=== PATIENT | female | born 1995 | race Two or more races ===

== ENCOUNTER 2022-04-27 16:35 | Outpatient (CLI) | payer MEDICAID, SELFPAY ==
[2022-04-27 23:28] LABS: Chlamydia DNA Amplified* NOT DETECTED (No Detected); GC DNA Amplified* NOT DETECTED (No Detected)
[2022-04-29 14:22] LABS: DHEAS 216 ug/dL (99-340); Follicle Stimulating Hormone 5.3 IU/L; Luteinizing Hormone 10.6 IU/L
[2022-05-01 17:01] LABS: Estradiol by TMS 56.1 pg/mL
[2022-05-01 17:04] LABS: 17-Hydroxyprogesterone HPLC 80.85 ng/dL (<=206.00)
[2022-05-02 14:15] LABS: Sex Hormone Binding Globulin 57 nmol/L (25-122); Testosterone, Free LC-MS/MS 3.8 pg/mL (0.8-7.4); Testosterone, LC-MS/MS 32 ng/dL (9-55)
== END 2022-04-27 16:36 | disposition home or self-care (01) ==
PROVIDERS: Visit Provider Physician Assistant Medical
DX: Z00.00 Encounter for general adult medical examination without abnormal findings (principal); N76.0 Acute vaginitis; N92.6 Irregular menstruation, unspecified
CPT/HCPCS: 82627; 82670; 83001; 83002; 83498; 84270; 84402; 84403; 84443; 87109; 87491; 87591

== ENCOUNTER 2022-06-20 14:32 | Outpatient (CLI) | payer OTHER, SELFPAY ==
--- NOTE | 2022-06-20 15:00 | CRLHL7_ITS ---
For Patients: As a result of the Century Cures Act, medical imaging exams and procedure reports are released immediately into your electronic medical record. You may view this report before your referring provider. If you have questions, please contact your health care provider. CLINICAL HISTORY: Possible PCOS TECHNIQUE: 2D bravo scale and color Doppler images were acquired of the pelvis using a transvaginal approach. FINDINGS: On transvaginal imaging, the myometrium has a normal uniform echotexture. The uterus measures 6.6 x 3.2 x 4.8 cm. The endometrial lining appears normal and measures 5 mm in thickness. Incidental cervical nabothian cysts are present. The left ovary measures 3.8 x 1.9 x 2.7 cm in size and the right ovary measures 3.8 x 2.5 x 2.8 cm. Normal appearing ovarian follicles noted. The ovaries demonstrate normal arterial and venous blood flow on color Doppler analysis. There are no suspicious fluid collections within the cul-de-sac. IMPRESSION: No abnormalities of the uterus or ovaries identified. No evidence of PCOS. Dictated by Justin Vick MD @ 06/22/2022 6:48:00 AM (Electronically Signed)
== END 2022-06-20 14:33 | disposition home or self-care (01) ==
LOC: US 14:33
PROVIDERS: PCP Physician Assistant Medical; Visit Provider Physician Assistant Medical
DX: Z34.90 Encounter for supervision of normal pregnancy, unspecified, unspecified trimester (principal)
CPT/HCPCS: 76830

== ENCOUNTER 2022-09-07 22:20 | Emergency (ER) | payer OTHER, SELFPAY ==
[2022-09-07 22:27] VITALS: BP 114/75; PULSE 67; RESP 18; TEMP 36.6; O2SAT 97; BMI 39.7
--- NOTE | 2022-09-07 22:39 | ED.GENADULT ---
HPI - General Adult General Chief complaint: Abdominal Pain <Andressa Carty MD - Last Filed: 09/07/22 23:56> Stated complaint: Abdominal Pain <Andressa Carty MD - Last Filed: 09/07/22 23:56> Time Seen by Provider: 09/07/22 22:25 <Andressa Carty MD - Last Filed: 09/07/22 23:56> Source: patient <Andressa Carty MD - Last Filed: 09/07/22 23:56> Mode of arrival: ambulatory <Andressa Carty MD - Last Filed: 09/07/22 23:56> Limitations: no limitations <Andressa Carty MD - Last Filed: 09/07/22 23:56> History of Present Illness HPI narrative: 26-year-old female coming in today complaining of right upper quadrant abdominal pain that is been going on for 6 days. Pain is located in the right upper quadrant and does not radiate. Nothing makes it better or worse. It is not associated with eating. Does not cause nausea or vomiting. She rates the pain at 8.5/10. She was seen in the urgent care this afternoon where her lab workup was unremarkable and an outpatient ultrasound was recommended. She comes to the ER for evaluation given the fact that she has had no relief her pain all day. She denies any fevers or chills. She states that she has regular bowel movements but they are often small. She is due for her menses any day, test earlier today was negative. She is sexually active, is not on control. She denies any urinary symptoms such as increased urgency, frequency or dysuria. She denies cough, shortness of breath or pain with deep inspiration. Past medical history significant for morbid obesity, vitiligo, hidradenitis suppurative, a. She takes spironolactone for acne. She denies any previous surgeries. <Andressa Carty MD - Last Filed: 09/07/22 23:56> Related Data Home medications: Previous Rx's Medication Instructions Recorded clindamycin phosphate 1 % lotion 1 applic topical BID #60 mL 06/08/22 ruxolitinib 1.5 % topical cream 1 applic topical BID #60 grams 06/08/22 (Opzelura) spironolactone 50 mg tablet 50 mg PO BID #60 tabs 06/08/22 <Andressa Carty MD - Last Filed: 09/07/22 23:56> Allergies/adverse reactions: Allergies Allergy/AdvReac Type Severity Reaction Status Date / Time No Known Drug Allergies Allergy Verified 06/08/22 14:57 <Andressa Carty MD - Last Filed: 09/07/22 23:56> Review of Systems Status of ROS: Reports: 10 or more systems reviewed and unremarkable except as noted in History and below <Andressa Carty MD - Last Filed: 09/07/22 23:56> [facility] Medical History: Medical History Vitiligo ?L80 - Vitiligo (ICD-10) History of morbid obesity ?Z86.39 - Personal history of other endocrine, nutritional and metabolic disease (ICD-10) <Andressa Carty MD - Last Filed: 09/07/22 23:56> Surgical History: Surgical History History of wisdom tooth extraction ?K08.409 - Partial loss of teeth, unspecified cause, unspecified class (ICD-10) <Andressa Carty MD - Last Filed: 09/07/22 23:56> Family History: Family History Father Diabetes <Andressa Carty MD - Last Filed: 09/07/22 23:56> Social History: Social History Narrative: Single- in a significant relationship Exercises 4-5 days per week Consumes about 5 alcoholic beverages per week. Denies any recreational drug use. Nonsmoker. Has a high school diploma. Smoking Status: Never smoker Non-prescribed substance use: denies use <Andressa Carty MD - Last Filed: 09/07/22 23:56> Exam Narrative: Exam Narrative: Obese, well-developed patient in no acute distress. Alert and oriented. Answers questions appropriately. Mood and affect are appropriate. Thoughts are goal oriented and rational. No tangential or magical thinking noted. Patient speaks in full sentences without needing to catch her breath. She does not appear ill or toxic. HEENT: Normocephalic atraumatic. Pupils are equally round reactive to light. Extraocular muscles are intact. Conjunctivae are moist without any icterus noted. Moist mucous membranes. Posterior pharynx is normal. Neck is soft without any lymphadenopathy or thyromegaly. No masses are appreciated. Cardiovascular: Heart is regular rate and rhythm S1 and S2 are present without any murmurs. Lungs: Clear to auscultation bilaterally no wheezes rhonchi or rales are appreciated. Patient takes deep breaths without any discomfort. Abdomen: Soft and nondistended with normal bowel sounds. No guarding or rebound. Difficult to assess for organomegaly secondary to body habitus. Patient does have a positive Lewis sign and tenderness in the right upper quadrant. Extremities: Bilateral lower extremities are without edema. <Andressa Carty MD - Last Filed: 09/07/22 23:56> Const: Vital Signs, click to edit/add: Vital Signs - 24 hr 09/07/22 22:27 09/07/22 23:33 Temperature 97.8 F 97.6 F Pulse Rate [Right Pulse Oximeter] 67 70 Respiratory Rate 18 16 Blood Pressure [Ri ght Upper Arm] 114/75 110/70 Pulse Oximetry 97 96 Oxygen Delivery Me thod Room Air Room Air <Andressa Carty MD - Last Filed: 09/07/22 23:56> Vital Signs, click to edit/add: Vital Signs - 24 hr 09/07/22 22:27 09/07/22 23:33 Temperature 97.8 F 97.6 F Pulse Rate [Right Pulse Oximeter] 67 70 Respiratory Rate 18 16 Blood Pressure [Ri ght Upper Arm] 114/75 110/70 Pulse Oximetry 97 96 Oxygen Delivery Me thod Room Air Room Air <Randi Carmen MD - Last Filed: 09/08/22 01:00> Course Course Hospital Course: IV established and labs were drawn, right upper quadrant ultrasound ordered. Differential diagnosis at this time include gastritis, cholecystitis, cholelithiasis, colitis, abdominal wall pain. Labs are unremarkable: There is no elevated white count, normal CRP, normal LFTs, normal UA. Ultrasound, per certified cytotechnologist, shows cholelithiasis and no obvious evidence of cholecystitis. <Andressa Carty MD - Last Filed: 09/07/22 23:56> Vital Signs Vital signs: Initial Vital Signs Temperature 97.8 F 09/07/22 22:27 Temperature Source Temporal Artery Scan 09/07/22 22:27 Pulse Rate 67 09/07/22 22:27 Pulse Rhythm Regular 09/07/22 22:27 Respiratory Rate 18 09/07/22 22:27 Blood Pressure 114/75 09/07/22 22:27 Blood Pressure Mean 88 09/07/22 22:27 Blood Pressure Position Sitting 09/07/22 22:27 Pulse Oximetry 97 09/07/22 22:27 Oxygen Delivery Method Room Air 09/07/22 22:27 Vital Signs Temperature 97.8 F 09/07/22 22:27 Pulse Rate 67 09/07/22 22:27 Respiratory Rate 18 09/07/22 22:27 Blood Pressure 114/75 09/07/22 22:27 Pulse Oximetry 97 09/07/22 22:27 Oxygen Delivery Method Room Air 09/07/22 22:27 Temperature 97.6 F 09/07/22 23:33 Pulse Rate 70 09/07/22 23:33 Respiratory Rate 16 09/07/22 23:33 Blood Pressure 110/70 09/07/22 23:33 Pulse Oximetry 96 09/07/22 23:33 Oxygen Delivery Method Room Air 09/07/22 23:33 <Andressa Carty MD - Last Filed: 09/07/22 23:56> Initial Vital Signs Temperature 97.8 F 09/07/22 22:27 Temperature Source Temporal Artery Scan 09/07/22 22:27 Pulse Rate 67 09/07/22 22:27 Pulse Rhythm Regular 09/07/22 22:27 Respiratory Rate 18 09/07/22 22:27 Blood Pressure 114/75 09/07/22 22:27 Blood Pressure Mean 88 09/07/22 22:27 Blood Pressure Position Sitting 09/07/22 22:27 Pulse Oximetry 97 09/07/22 22:27 Oxygen Delivery Method Room Air 09/07/22 22:27 Vital Signs Temperature 97.8 F 09/07/22 22:27 Pulse Rate 67 09/07/22 22:27 Respiratory Rate 18 09/07/22 22:27 Blood Pressure 114/75 09/07/22 22:27 Pulse Oximetry 97 09/07/22 22:27 Oxygen Delivery Method Room Air 09/07/22 22:27 Temperature 97.6 F 09/07/22 23:33 Pulse Rate 70 09/07/22 23:33 Respiratory Rate 16 09/07/22 23:33 Blood Pressure 110/70 09/07/22 23:33 Pulse Oximetry 96 09/07/22 23:33 Oxygen Delivery Method Room Air 09/07/22 23:33 <Randi Carmen MD - Last Filed: 09/08/22 01:00> Medical Decision Making MDM Narrative Medical decision making narrative: 26-year-old female with cholelithiasis. Patient will be discharged home at this time with pain medication. We will give her the information to call the surgery clinic in the morning to set up an outpatient appointment for management. Recommend returning to the ER if she develops fever, vomiting or pain that cannot be controlled. <Andressa Craty MD - Last Filed: 09/07/22 23:56> 26-year-old female with cholelithiasis. Patient will be discharged home at this time with pain medication. We will give her the information to call the surgery clinic in the morning to set up an outpatient appointment for management. Recommend returning to the ER if she develops fever, vomiting or pain that cannot be controlled. Update: I assumed care from Dr. Carty while waiting for ultrasound report. As expected, gallstones shown. Patient has previously been counseled by Dr. Carty regarding plan of care. Discharge instructions reviewed and augmented slightly. Patient will call for elective outpatient appointment, consider elective cholecystectomy, counseled on low-fat diet and interim. Alarm symptoms reviewed by nursing team and included in discharge instructions. <Randi Carmne MD - Last Filed: 09/08/22 01:00> Lab Data Lab results reviewed: Yes I reviewed the patient's lab results <Andressa Carty MD - Last Filed: 09/07/22 23:56> Lab results narrative: Reassuring <Randi Carmen MD - Last Filed: 09/08/22 01:00> Labs: Lab Results 09/07/22 09/07/22 Range/Units 22:45 22:55 WBC 8.32 (4.50-11.00) K/uL RBC 5.37 H (4.00-5.20) m/uL Hgb 15.4 (12.0-16.0) gm/dL Hct 45.3 (33.0-51.0) % MCV 84 (80-100) fL MCH 29 (26-34) pg MCHC 34 (32-36) gm/dL RDW Coeff of Yenny 13.1 (11.5-15.5) % Plt Count 276 (140-440) K/uL Neut % (Auto) 65.6 (42.0-72.0) % Lymph % (Auto) 26.9 (20-44) % [place] % (Auto) 5.6 (0.0-11.0) % Eos % (Auto) 1.3 (0.0-7.0) % Baso % (Auto) 0.4 (0.0-3.0) % Neut # (Auto) 5.45 (1.7-7.0) K/uL Lymph # (Auto) 2.24 (0.90-2.90) K/uL [place] # (Auto) 0.50 (0.00-0.90) K/UL Eos # (Auto) 0.11 (0.00-0.50) K/uL Baso # (Auto) 0.03 (0.00-0.30) K/uL Sodium 137 (135-149) mmol/L Potassium 3.8 (3.6-5.1) mmol/L Chloride 100 (96-114) mmol/L Carbon Dioxide 26 (20-32) mmol/L BUN 10 (5-24) mg/dL Creatinine 0.5 (0.5-1.5) mg/dL Estimated Creat Clear 159.62 Estimated GFR 133 ml/min Glucose 92 (60-115) mg/dL Calcium 10.0 (8.4-10.6) mg/dL Total Bilirubin 0.9 (0.1-1.5) mg/dL Direct Bilirubin 0.1 (0.0-0.5) mg/dL AST 28 (12-35) U/L ALT 22 (4-35) U/L Alkaline Phosphatase 67 (40-150) U/L C-Reactive Protein 0.9 (0.5-1.0) mg/dL Total Protein 8.8 H (6.0-8.3) g/dL Albumin 5.0 (3.3-5.0) g/dL Lipase 55 (23-300) U/L Urine Color Yellow (Yellow) Urine Appearance Clear (Clear) Urine pH 6.5 (5.0-8.5) Ur Specific [place] <= 1.005 (1.000-1.030) Urine Protein Negative (Negative) Urine Glucose (UA) Negative (Negative) Urine Ketones Negative (Negative) Urine Blood Negative (Negative) Urine Nitrite Negative (Negative) Urine Bilirubin Negative (Negative) Urine Urobilinogen 0.2 (0.2-1.0) Ur Leukocyte Esterase Negative (Negative) Urine RBC 0-2 (0-2) Urine WBC 0-2 (0-5) Ur Squamous Epith Cells None (None-Few) Urine Bacteria None (None) <Andressa Carty MD - Last Filed: 09/07/22 23:56> Lab Results 09/07/22 09/07/22 Range/Units 22:45 22:55 WBC 8.32 (4.50-11.00) K/uL RBC 5.37 H (4.00-5.20) m/uL Hgb 15.4 (12.0-16.0) gm/dL Hct 45.3 (33.0-51.0) % MCV 84 (80-100) fL MCH 29 (26-34) pg MCHC 34 (32-36) gm/dL RDW Coeff of Yenny 13.1 (11.5-15.5) % Plt Count 276 (140-440) K/uL Neut % (Auto) 65.6 (42.0-72.0) % Lymph % (Auto) 26.9 (20-44) % [place] % (Auto) 5.6 (0.0-11.0) % Eos % (Auto) 1.3 (0.0-7.0) % Baso % (Auto) 0.4 (0.0-3.0) % Neut # (Auto) 5.45 (1.7-7.0) K/uL Lymph # (Auto) 2.24 (0.90-2.90) K/uL [place] # (Auto) 0.50 (0.00-0.90) K/UL Eos # (Auto) 0.11 (0.00-0.50) K/uL Baso # (Auto) 0.03 (0.00-0.30) K/uL Sodium 137 (135-149) mmol/L Potassium 3.8 (3.6-5.1) mmol/L Chloride 100 (96-114) mmol/L Carbon Dioxide 26 (20-32) mmol/L BUN 10 (5-24) mg/dL Creatinine 0.5 (0.5-1.5) mg/dL Estimated Creat Clear 159.62 Estimated GFR 133 ml/min Glucose 92 (60-115) mg/dL Calcium 10.0 (8.4-10.6) mg/dL Total Bilirubin 0.9 (0.1-1.5) mg/dL Direct Bilirubin 0.1 (0.0-0.5) mg/dL AST 28 (12-35) U/L ALT 22 (4-35) U/L Alkaline Phosphatase 67 (40-150) U/L C-Reactive Protein 0.9 (0.5-1.0) mg/dL Total Protein 8.8 H (6.0-8.3) g/dL Albumin 5.0 (3.3-5.0) g/dL Lipase 55 (23-300) U/L Urine Color Yellow (Yellow) Urine Appearance Clear (Clear) Urine pH 6.5 (5.0-8.5) Ur Specific [place] <= 1.005 (1.000-1.030) Urine Protein Negative (Negative) Urine Glucose (UA) Negative (Negative) Urine Ketones Negative (Negative) Urine Blood Negative (Negative) Urine Nitrite Negative (Negative) Urine Bilirubin Negative (Negative) Urine Urobilinogen 0.2 (0.2-1.0) Ur Leukocyte Esterase Negative (Negative) Urine RBC 0-2 (0-2) Urine WBC 0-2 (0-5) Ur Squamous Epith Cells None (None-Few) Urine Bacteria None (None) <Randi Carmen MD - Last Filed: 09/08/22 01:00> Imaging Data US - abdomen: Attestation: I have reviewed the pertinent imaging results. <Randi Carmen MD - Last Filed: 09/08/22 01:00> My impression: Gallstones, no cholecystitis <Randi Carmen MD - Last Filed: 09/08/22 01:00> Radiologist's impression: IMPRESSION: Cholelithiasis and biliary sludge without evidence for cholecystitis. Otherwise, unremarkable right upper quadrant ultrasound. <Randi Carmen MD - Last Filed: 09/08/22 01:00> Discharge Plan Discharge Clinical Impression: Cholelithiasis <Andressa Carty MD - Last Filed: 09/07/22 23:56> Patient Disposition: Home, Self-Care <Andressa Carty MD - Last Filed: 09/07/22 23:56> Condition: Stable <Andressa Carty MD - Last Filed: 09/07/22 23:56> Instructions: Gallstones (ED) <Andressa Carty MD - Last Filed: 09/07/22 23:56> Additional Instructions: You have stones inside your gallbladder. You will be provided with the phone number to the surgery clinic today-you should call them 1st thing in the morning to set up a follow-up appointment. In the meantime I recommend you eat a very bland diet - try to stick to lots of fruits and vegetables, avoid anything fried or that has a lot of fat in it- this will aggravate the gallbladder and causing increased pain. Prescription sent to [facility]. <Andressa Carty MD - Last Filed: 09/07/22 23:56> Activity Level: Activity as Tolerated <Andressa Carty MD - Last Filed: 09/07/22 23:56> Activity as Tolerated <Randi Carmen MD - Last Filed: 09/08/22 01:00> Discharge Diet: Low Fat/Low Cholesterol <Andressa Carty MD - Last Filed: 09/07/22 23:56> Low Fat/Low Cholesterol <Randi Carmen MD - Last Filed: 09/08/22 01:00> Prescriptions: No Action spironolactone 50 mg tablet 50 mg PO BID Qty: 60 2RF clindamycin phosphate 1 % lotion 1 applic topical BID Qty: 60 0RF Opzelura 1.5 % cream 1 applic topical BID Qty: 60 3RF <Andressa Carty MD - Last Filed: 09/07/22 23:56> Follow Up/Referrals: Chely Lane PA-C [Primary Care Provider] - <Andressa Catry MD - Last Filed: 09/07/22 23:56> Stand Alone Forms: My[facility] Info Instructions <Andressa Carty MD - Last Filed: 09/07/22 23:56>
--- NOTE | 2022-09-07 22:41 | CRLHL7_ITS ---
For Patients: As a result of the Century Cures Act, medical imaging exams and procedure reports are released immediately into your electronic medical record. You may view this report before your referring provider. If you have questions, please contact your health care provider. INDICATION: Right upper quadrant abdomen pain. TECHNIQUE: Ultrasound abdomen limited. Sonographic images of the right upper quadrant were obtained using bravo-scale and color Doppler images. COMPARISON: None. FINDINGS: Liver: Normal in size and echotexture. No suspicious masses. No intrahepatic biliary dilatation. Gallbladder: Contains several calcified stones and biliary sludge. Normal wall thickness. No pericholecystic fluid. Negative sonographic Lewis sign per blunger. Common bile duct: 3 mm. Pancreas: Unremarkable. Right kidney: Normal in size. Normal echotexture and cortex. No suspicious masses, stones, or hydronephrosis. Vasculature: Proximal abdominal aorta and IVC are unremarkable. IMPRESSION: Cholelithiasis and biliary sludge without evidence for cholecystitis. Otherwise, unremarkable right upper quadrant ultrasound. Dictated by Carson Hatch MD @ 09/08/2022 12:27:02 AM (Electronically Signed)
[2022-09-07 22:53] LABS: Appearance Urine Clear (Clear); Bilirubin Urine Negative (Negative); Blood Urine Negative (Negative); Color Urine Yellow (Yellow); Glucose Urine Negative (Negative); Ketones Urine Negative (Negative); Leukocyte Esterase Urine Negative (Negative); Nitrite Urine Negative (Negative); Protein Urine Negative (Negative); Specific Gravity Urine <= 1.005 (1.000-1.030); Urobilinogen Urine 0.2 (0.2-1.0); pH Urine 6.5 (5.0-8.5)
[2022-09-07 23:00] LABS: RBC Urine 0-2 (0-2); WBC Urine 0-2 (0-5)
[2022-09-07 23:03] LABS: Basophils Absolute Auto 0.03 K/uL (0.00-0.30); Basophils Percent Auto 0.4 % (0.0-3.0); Eosinophils Absolute Auto 0.11 K/uL (0.00-0.50); Eosinophils Percent Auto 1.3 % (0.0-7.0); Hematocrit 45.3 % (33.0-51.0); Hemoglobin* 15.4 gm/dL (12.0-16.0); Immature Granulocytes Abs Auto 0.02 K/uL (0.00-0.30); Immature Granulocytes Pct Auto 0.2 %; Lymphocytes Absolute Auto 2.24 K/uL (0.90-2.90); Lymphocytes Percent Auto 26.9 % (20-44); Mean Corpuscular HGB Conc 34 gm/dL (32-36); Mean Corpuscular Hemoglobin 29 pg (26-34); Mean Corpuscular Volume 84 fL (80-100); Monocytes Percent Auto 5.6 % (0.0-11.0); Neutrophils Absolute Auto 5.45 K/uL (1.7-7.0); Neutrophils Percent Auto 65.6 % (42.0-72.0); Platelet Count* 276 K/uL (140-440); RDW Coefficient of Variation % 13.1 % (11.5-15.5); Red Blood Count 5.37 m/uL (4.00-5.20); White Blood Count* 8.32 K/uL (4.50-11.00)
[2022-09-07 23:07] LABS: Slide Review Reflex No
[2022-09-07 23:12] LABS: Chloride* 100 mmol/L (96-114); Sodium* 137 mmol/L (135-149)
[2022-09-07 23:13] LABS: Potassium* 3.8 mmol/L (3.6-5.1)
[2022-09-07 23:15] LABS: Creatinine* 0.5 mg/dL (0.5-1.5); Est. Creatinine Clearance* 159.62; Estimated Glomerular Filt Rate 133 ml/min
[2022-09-07 23:16] LABS: Alanine Aminotransferase* 22 U/L (4-35); Alkaline Phosphatase* 67 U/L (40-150); Aspartate Amino Transferase* 28 U/L (12-35); Bilirubin Direct* 0.1 mg/dL (0.0-0.5); Bilirubin Total* 0.9 mg/dL (0.1-1.5); Blood Urea Nitrogen* 10 mg/dL (5-24); Carbon Dioxide* 26 mmol/L (20-32); Glucose* 92 mg/dL (60-115); Lipase* 55 U/L (23-300); Total Protein* 8.8 g/dL (6.0-8.3)
[2022-09-07 23:18] LABS: C Reactive Protein* 0.9 mg/dL (0.5-1.0)
[2022-09-07 23:33] VITALS: BP 110/70; PULSE 70; RESP 16; TEMP 36.4; O2SAT 96
[2022-09-08] MEDS: HYDROCODONE-ACETAMIN 5-325 MG 1 TAB 2 TAB PO (00:06)
== END 2022-09-08 01:17 | disposition home or self-care (01) ==
PROVIDERS: Emergency Provider Family Medicine; PCP Physician Assistant Medical
DX: K80.50 Calculus of bile duct without cholangitis or cholecystitis without obstruction (principal)
CPT/HCPCS: 36415; 76705; 80048; 80076; 81001; 83690; 85025; 86140; 99283; 99284; A9270

== ENCOUNTER 2022-09-08 09:04 | Day surgery (SDC) | payer OTHER, SELFPAY ==
[2022-09-08] VITALS (49 sets, daily range): BP systolic 103–156; BP diastolic 64–134; PULSE 57–95; RESP 12–18; TEMP 36.4–37; O2SAT 95–98; BMI 39.7
--- NOTE | 2022-09-08 09:24 | ED_ITS ---
HPI - Abdominal Pain General Time Seen by Provider: 09:24 Date Seen: 09/08/22 Chief Complaint: Abdominal Pain Stated Complaint: Gallbladder issues- Was here last night Time Seen by Provider: 09/08/22 09:24 Source: patient and RN notes reviewed Mode of arrival: ambulatory Limitations: no limitations History of Present Illness HPI narrative: Patient is a very pleasant 26-year-old female with history of obesity, vitiligo, hidradenitis suppurative, and 1 week of abdominal pain who comes back to the emergency room after having been seen last night for suspected biliary colic. Patient notes the onset of right upper quadrant pain 1 week ago. She states that the pain went away but then came back yesterday. She was seen at both urgent care and then the emergency room at which time her laboratory values were reassuring but she had documented gallstones without cholecystitis noted on her ultrasound. She was supposed to follow up with surgery but pain was much worse this morning and is now associated with vomiting. She has not noticed a fever. Medications have not made this better. She prefers to not moved but even then the pain comes in waves. Patient states that she is normally healthy. She has not had any history of heart problems. She does note cold-like symptoms 1 week ago. She has no shortness of breath or difficulty breathing today. Related Data Previous Rx's Medication Instructions Recorded clindamycin phosphate 1 % lotion 1 applic topical BID #60 mL 06/08/22 ruxolitinib 1.5 % topical cream 1 applic topical BID #60 grams 06/08/22 (Opzelura) spironolactone 50 mg tablet 50 mg PO BID #60 tabs 06/08/22 Allergies Allergy/AdvReac Type Severity Reaction Status Date / Time No Known Drug Allergies Allergy Verified 06/08/22 14:57 Review of Systems Status of ROS Reports: 10 or more systems reviewed and unremarkable except as noted in History and below Narrative No personal or family history of problems with anesthesia or DVT. Const Denies: fever or chills ENMT Denies: neck pain, difficulty swallowing or hoarseness Cardio Denies: chest pain, swelling of feet/ankles, lightheadedness or shortness of breath with exertion Resp Reports: cough (Improved from last week); Denies: shortness of breath GI Reports: abdominal pain, nausea and vomiting; Denies: diarrhea or difficulty swallowing Denies: painful urination Musculo Denies: back pain or neck pain Neuro Denies: headache Endo Denies: excessive urination PFSH PFSH Medical History Vitiligo ?L80 - Vitiligo (ICD-10) History of morbid obesity ?Z86.39 - Personal history of other endocrine, nutritional and metabolic disease (ICD-10) Surgical History History of wisdom tooth extraction ?K08.409 - Partial loss of teeth, unspecified cause, unspecified class (ICD- 10) Family History Father Diabetes Social History Narrative: Single- in a significant relationship Exercises 4-5 days per week Consumes about 5 alcoholic beverages per week. Denies any recreational drug use. Nonsmoker. Has a high school diploma. Smoking Status: Never smoker Do you use any of these nicotine containing products: None Second hand tobacco smoke exposure: No How often do you have a drink containing alcohol: 2-4 times a month How many standard drinks containing alcohol do you have on a typical day: 3 or 4 AUDIT-C Alcohol total score: 3 Non-prescribed substance use: denies use service: No Exam Narrative: Exam Narrative: Alert and oriented. In clear discomfort. Eyes are clear and oral cavity with moist mucous membranes. Mentating normally. Heart with regular rate and rhythm. Lungs are clear. Abdomen is not examined as patient is in significant discomfort at this time. Will return for that. Lower extremities without edema. Const: Vital Signs, click to edit/add: Vital Signs - 24 hr 09/08/22 09:13 09/08/22 09:55 09/08/22 10:00 Temperature 98.2 F Pulse Rate 66 63 Pulse Rate [Pulse Oximeter] 66 Respiratory Rate 18 Blood Pressure Blood Pressure [Le ft Upper Arm] 129/85 Pulse Oximetry 97 97 96 Oxygen Delivery Me thod Room Air 09/08/22 10:01 09/08/22 10:17 09/08/22 10:30 Temperature Pulse Rate 65 65 77 Pulse Rate [Pulse Oximeter] Respiratory Rate Blood Pressure 118/76 123/85 Blood Pressure [Le ft Upper Arm] Pulse Oximetry 96 97 97 Oxygen Delivery Me thod 09/08/22 10:32 09/08/22 10:33 09/08/22 10:46 Temperature Pulse Rate 66 63 59 L Pulse Rate [Pulse Oximeter] Respiratory Rate Blood Pressure 110/71 117/78 Blood Pressure [Le ft Upper Arm] Pulse Oximetry 97 96 96 Oxygen Delivery Me thod 09/08/22 11:00 09/08/22 11:01 09/08/22 11:02 Temperature Pulse Rate 66 57 L 59 L Pulse Rate [Pulse Oximeter] Respiratory Rate Blood Pressure 117/76 Blood Pressure [Le ft Upper Arm] Pulse Oximetry 96 96 96 Oxygen Delivery Me thod 09/08/22 11:16 09/08/22 11:17 09/08/22 11:30 Temperature Pulse Rate 57 L 61 70 Pulse Rate [Pulse Oximeter] Respiratory Rate Blood Pressure 122/80 Blood Pressure [Le ft Upper Arm] Pulse Oximetry 98 97 98 Oxygen Delivery Me thod 09/08/22 11:31 09/08/22 11:46 09/08/22 12:00 Temperature Pulse Rate 60 60 63 Pulse Rate [Pulse Oximeter] Respiratory Rate Blood Pressure 127/85 121/77 Blood Pressure [Le ft Upper Arm] Pulse Oximetry 98 97 97 Oxygen Delivery Me thod 09/08/22 12:01 09/08/22 12:16 09/08/22 12:30 Temperature Pulse Rate 62 64 68 Pulse Rate [Pulse Oximeter] Respiratory Rate Blood Pressure 121/80 122/74 Blood Pressure [Le ft Upper Arm] Pulse Oximetry 97 96 97 Oxygen Delivery Me thod 09/08/22 12:31 09/08/22 12:46 09/08/22 13:00 Temperature Pulse Rate 65 63 63 Pulse Rate [Pulse Oximeter] Respiratory Rate Blood Pressure 122/82 123/88 Blood Pressure [Le ft Upper Arm] Pulse Oximetry 97 98 97 Oxygen Delivery Me thod 09/08/22 13:01 09/08/22 13:16 09/08/22 13:17 Temperature Pulse Rate 65 66 67 Pulse Rate [Pulse Oximeter] Respiratory Rate Blood Pressure 124/77 129/85 Blood Pressure [Le ft Upper Arm] Pulse Oximetry 97 97 97 Oxygen Delivery Me thod 09/08/22 13:30 09/08/22 13:31 09/08/22 13:48 Temperature Pulse Rate 78 68 64 Pulse Rate [Pulse Oximeter] Respiratory Rate Blood Pressure 126/89 156/134 H Blood Pressure [Le ft Upper Arm] Pulse Oximetry 97 97 97 Oxygen Delivery Me thod 09/08/22 14:01 09/08/22 14:02 09/08/22 14:16 Temperature Pulse Rate 68 65 68 Pulse Rate [Pulse Oximeter] Respiratory Rate Blood Pressure 123/87 129/81 Blood Pressure [Le ft Upper Arm] Pulse Oximetry 97 97 95 Oxygen Delivery Me thod 09/08/22 14:30 09/08/22 14:31 Temperature Pulse Rate 63 67 Pulse Rate [Pulse Oximeter] Respiratory Rate Blood Pressure 127/81 Blood Pressure [Le ft Upper Arm] Pulse Oximetry 97 96 Oxygen Delivery Me thod Documenting provider has reviewed patient's vital signs: yes Course Reevaluation(s) Reevaluation #1: Patient noted to be improved after initial Toradol and morphine. Pain now coming back and so we will use Dilaudid 0.5 mg and continue fluids. I have spoken with our surgeon on-call. Will see the patient this afternoon. Reevaluation #2: Patient noted to need continued medication an additional 0.5 mg of Dilaudid is given. press shop supervisor facilitates transfer to same-day surgery as the ED is now overwhelmed with patient's. Vital Signs Vital signs: Initial Vital Signs Temperature 98.2 F 09/08/22 09:13 Temperature Source Temporal Artery Scan 09/08/22 09:13 Pulse Rate 66 09/08/22 09:13 Pulse Rhythm Regular 09/08/22 09:13 Respiratory Rate 18 09/08/22 09:13 Blood Pressure 129/85 09/08/22 09:13 Blood Pressure Mean 99 09/08/22 09:13 Blood Pressure Position Supine 09/08/22 09:13 Pulse Oximetry 97 09/08/22 09:13 Oxygen Delivery Method Room Air 09/08/22 09:13 Vital Signs Temperature 98.2 F 09/08/22 09:13 Pulse Rate 66 09/08/22 09:13 Respiratory Rate 18 09/08/22 09:13 Blood Pressure 129/85 09/08/22 09:13 Pulse Oximetry 97 09/08/22 09:13 Oxygen Delivery Method Room Air 09/08/22 09:13 Temperature 98.2 F 09/08/22 09:13 Pulse Rate 67 09/08/22 14:31 Respiratory Rate 18 09/08/22 09:13 Blood Pressure 127/81 09/08/22 14:31 Pulse Oximetry 96 09/08/22 14:31 Oxygen Delivery Method Room Air 09/08/22 09:13 MDM - Abdominal Pain MDM Narrative Medical decision making narrative: 1. Biliary colic-pain improved with combination of Zofran, morphine and Dilaudid. Ultrasound from yesterday evening shows cholelithiasis without cholecystitis. Laboratory values are reassuring today with normal white count and LFTs. 2. Cold-like symptoms-this was last week and patient has no respiratory distress today. COVID test is negative. Lung sounds are clear. 3. Disposition -admit to same-day surgery suspected. Did speak with surgeon on- call Dr. Mensah who is currently in the OR. Addendum: Patient will be moved to same-day surgery for official surgical consult. Patient noted to have no history of heart abnormalities, recent chest pain. Lungs are clear. No history of adverse reaction to anesthesia in the patient or family. No evidence of sepsis. Patient will be going to the OR determined to be low risk for surgery. Medical Records Attestation: I reviewed the patient's medical records. Lab Data Attestation: I reviewed the patient's lab results. Labs: Lab Results 09/08/22 09/08/22 Range/Units 09:34 09:45 WBC 10.79 (4.50-11.00) K/uL RBC 5.22 H (4.00-5.20) m/uL Hgb 14.9 (12.0-16.0) gm/dL Hct 43.5 (33.0-51.0) % MCV 83 (80-100) fL MCH 29 (26-34) pg MCHC 34 (32-36) gm/dL RDW Coeff of Yenny 13.0 (11.5-15.5) % Plt Count 297 (140-440) K/uL Neut % (Auto) 86.9 H (42.0-72.0) % Lymph % (Auto) 9.5 L (20-44) % [place] % (Auto) 3.3 (0.0-11.0) % Eos % (Auto) 0.0 (0.0-7.0) % Baso % (Auto) 0.1 (0.0-3.0) % Neut # (Auto) 9.40 H (1.7-7.0) K/uL Lymph # (Auto) 1.00 (0.90-2.90) K/uL [place] # (Auto) 0.40 (0.00-0.90) K/UL Eos # (Auto) 0.00 (0.00-0.50) K/uL Baso # (Auto) 0.01 (0.00-0.30) K/uL Sodium 135 (135-149) mmol/L Potassium 4.1 (3.6-5.1) mmol/L Chloride 101 (96-114) mmol/L Carbon Dioxide 23 (20-32) mmol/L BUN 9 (5-24) mg/dL Creatinine 0.5 (0.5-1.5) mg/dL Estimated Creat Clear 159.62 Estimated GFR 133 ml/min Glucose 111 (60-115) mg/dL Lactate 1.3 (0.5-1.9) mmol/L Calcium 9.5 (8.4-10.6) mg/dL Total Bilirubin 1.1 (0.1-1.5) mg/dL Direct Bilirubin 0.0 (0.0-0.5) mg/dL AST 25 (12-35) U/L ALT 21 (4-35) U/L Alkaline Phosphatase 75 (40-150) U/L Total Protein 8.4 H (6.0-8.3) g/dL Albumin 2.7 L (3.3-5.0) g/dL Lipase 51 (23-300) U/L HCG, Qual Negative (Negative) SARS-CoV-2 (PCR) Negative SARS-CoV-2 (Negative) Discharge Plan Discharge Clinical Impression: Biliary colic Cholelithiasis Qualifiers: Cholelithiasis location: gallbladder Cholecystitis presence: without cholecystitis Biliary obstruction: without biliary obstruction Qualified Code(s): K80.20 - Calculus of gallbladder without cholecystitis without obst ruction Patient Disposition: XFER to OR Condition: Improved
[2022-09-08 09:49] LABS: Basophils Absolute Auto 0.01 K/uL (0.00-0.30); Basophils Percent Auto 0.1 % (0.0-3.0); Hematocrit 43.5 % (33.0-51.0); Hemoglobin* 14.9 gm/dL (12.0-16.0); Immature Granulocytes Abs Auto 0.02 K/uL (0.00-0.30); Immature Granulocytes Pct Auto 0.2 %; Lymphocytes Percent Auto 9.5 % (20-44); Mean Corpuscular HGB Conc 34 gm/dL (32-36); Mean Corpuscular Hemoglobin 29 pg (26-34); Mean Corpuscular Volume 83 fL (80-100); Monocytes Percent Auto 3.3 % (0.0-11.0); Neutrophils Percent Auto 86.9 % (42.0-72.0); Platelet Count* 297 K/uL (140-440); Red Blood Count 5.22 m/uL (4.00-5.20); White Blood Count* 10.79 K/uL (4.50-11.00)
[2022-09-08 09:50] LABS: Lactate* 1.3 mmol/L (0.5-1.9)
[2022-09-08] MEDS: ONDANSETRON 2 MG/ML inj 4 MG IVP (09:50)
[2022-09-08] MEDS: 0.9 % SODIUM CHLORIDE 1000 ml 1,000 ML IV (09:50)
--- OUTSIDE RECORDS SUMMARY | 2022-09-08 09:51 | XMS_ITS | Patient Health Record ---
Author Name Unknown Organization [facility] Address [address] [place] [address] Care Team Providers Care Fuel Agent Name Role Phone Barrera Conley Unavailable [phone] EstherAngie ramos Unavailable [phone] MarceloaDndy ambriz Unavailable [phone] Sakshi Murphy Unavailable [phone] PROBLEMS Type Condition ICD9-CM Code IUC35-AJ Code Onset Dates Condition Status W/U Status Risk SNOMED Code Notes Problem Irregular menses N92.6 confirmed 79735769 Problem Menopausal and female climacteric states N95.1 confirmed [id number] Problem Severe episode of recurrent major depressive disorder, without psychotic features F33.2 confirmed [id number] Problem BMI 40.0-44.9, adult Z68.41 confirmed [id number] ALLERGIES No Known Allergies ENCOUNTERS from 1995 to 2022-09-08 Encounter Location Date Provider Diagnosis [facility] [address] [place], [place] [id number] Dec, Barrera Conley [facility] [address] [place] [address] Dec, Barrera Conley Irregular menses N92.6 and Vaginal discharge N89.8 [facility] [address] [place], [place] [id number] Nov, Barrera Conley [facility] [address] [place] [address] Nov, Barrera Conley Encounter for screening for lipoid disorders Z13.220 ; Menopausal and female climacteric states N95.1 ; Thyroid disorder screen Z13.29 and Diabetes mellitus screening Z13.1 [facility] [address] [place], [place] [id number] Nov, Barrera Conley [facility] [address] [place] [address] Nov, Barrera Conley Routine gynecologica l examination Z01.419 ; High risk bisexual behavior Z72.53 ; STI (sexually transmitted infection) A64 ; Irregular menses N92.6 ; BMI 40.0-44.9, adult Z68.41 and Severe episode of recurrent major depressive disorder, without psychotic features F33.2 [facility] [address] [place] [address] Nov, Barrera Conley Screen for STD (sexually transmitted disease) Z11.3 SOCIAL HISTORY Tobacco Use: Social History Observation Description Date Details (start date - stop date) Never Smoker Sex Assigned At : Social History Observation Description Sex Assigned At Unknown Alcohol Screen (Audit-C) Question Answer Notes Did you have a drink contain ing alcohol in the past year? Yes Points 1 Interpretation Negative How many drinks did you have on a typical day when you were drinking in the past year? 1 or 2 (0 points) How often did you have a dri nk containing alcohol in the past year? Monthly or less (1 point) Tobacco Use/Smoking Question Answer Notes Are you a never smoker Sexual History Question Answer Notes Had sex in the past 12 months (vaginal, oral, or anal)? Yes Last menstrual period 11/19/2021 Have you ever had a Sexually transmitted disease ? Yes with Men only Use protection? No Chlamydia? Yes REASON FOR REFERRAL No Information VITAL SIGNS from 1995 to 2022-09-08 Height 67.5 in Nov, Weight 262.2 lbs Nov, BMI 40.46 kg/m2 Nov, Blood pressure systolic 138 mm Hg Nov, Blood pressure diastolic 82 mm Hg Nov, RESULTS from 1995 to 2022-09-08 Component Value Reference Range Notes LIPID PANEL Reviewed date:12/02/2021 09:19:25 Interpretation: Performing Lab:, SUSAN, [facility] Bob Landry M.D. Notes/Report: CHOL/HDLC RATIO 4.1 (calc) <5.0 (calc) CHOLESTEROL, TOTAL 190 mg/dL <200 mg/dL HDL CHOLESTEROL 46 mg/dL >OR = 50 mg/dL LDL-CHOLESTEROL 116 mg/dL (calc) NON HDL CHOLESTEROL 144 mg/dL (calc) <130 mg/dL (calc) TRIGLYCERIDES 161 mg/dL <150 mg/dL HEMOGLOBIN A1c Reviewed date:12/02/2021 09:19:25 Interpretation: Performing Lab:, Deep [facility], [place] Bob Landry M.D. Notes/Report: HEMOGLOBIN A1c 4.7 % of total Hgb <5.7 % of total Hgb DHEA SULFATE Reviewed date:12/02/2021 09:19:25 Interpretation: Performing Lab:, [facility] [address] [place] M.D. Notes/Report: DHEA SULFATE 211 mcg/dL 14-349 mcg/dL FSH Reviewed date:12/02/2021 09:19:25 Interpretation: Performing Lab:SUSAN [facility] M.D. Notes/Report: FSH 4.1 mIU/mL PROLACTIN Reviewed date:12/02/2021 09:19:25 Interpretation: Performing Lab:SUS[facility] [place]Maame Landry M.D. Notes/Report: PROLACTIN 8.0 ng/mL TSH Reviewed date:12/02/2021 09:19:25 Interpretation: Performing Lab:SUSAN [facility]ame Landry M.D. Notes/Report: TSH 1.17 mIU/L SEX HORMONE BINDING GLOBULIN Reviewed date:12/02/2021 09:19:25 Interpretation: Performing Lab:SUSAN [facility] Landry M.D. Notes/Report: SEX HORMONE BINDING GLOBULIN 60 nmol/L 17-124 nmol/ L TESTOSTERONE, TOTAL, LC/MS/M S Reviewed date:12/02/2021 09:19:25 Interpretation: Performing Lab:, Z3E, [facility] [facility] [address], [address], [place] Carson Jones MD Notes/Report: TESTOSTERONE, TOTAL, MS 38 ng/dL 2-45 ng/dL TESTOSTERONE, FREE Reviewed date:12/02/2021 16:30:33 Interpretation: Performing Lab:, Z3E, [facility] [facility] [address], [address], [place] Carson Jones MD Notes/Report: TESTOSTERONE, FREE 3.2 pg/mL 0.2-5.0 pg/mL Chlamydia & Gonorrhea Reviewed date:11/30/2021 16:41:31 Interpretation: Performing Lab:, [place], [facility] [place] [address], [place] Bob Landry Notes/Report: COMMENT CHLAMYDIA TRACHOMATIS RNA, T MA, UROGENITAL DETECTED NOT DETECTED NEISSERIA GONORRHOEAE RNA, T MA, UROGENITAL NOT DETECTED NOT DETECTED REASON FOR VISIT No Information MEDICAL (GENERAL) HISTORY Type Description Date Medical History Depression/ Anxiety MENTAL STATUS No Information ASSESSMENTS Encounter Date Diagnosis Assessment Notes Treatment Notes Treatment Clinical Notes Dec, Irregular menses (ICD-10 - N92.6) Labs reviewed. No obvious concerns for cause of irregular menses. Having more regular cycles every 1-2 months since losing 70 lbs. Could complete pelvic US to evaluate ovaries for PCOS if desired. Discussed metabolic syndrome likely attributing factor. Has done hormonal contraceptive in the past to regulate menses and prefers to avoid this treatment at this time Plan to monitor menses and length of cycles if she goes longer than 3 months without a period can consider progesterone challange as long as she is not to help induce bleeding. Otherwise she prefers to continue working on weight loss which has helped with cycle regulation this far. Dec, Vaginal discharge (ICD-10 - N89.8) Advise in office visit for vaginitis evaluation since today's visit was done via televisit Will have guest relations receptionist call her to schedule at her convenience Dec, Other This visit was conducted with the use of audio and video telecommunications system that permits real time communication between the patient and provider. Patient consent for virtual visit was obtained. Originating site: [facility] location Distant site: pt home Start time: 1551 Stop time:1600 15 min. spent in chart prep, reviewing lab results, treatment/management options, along with recommended follow up and time spent documenting today's visit Nov, High risk bisexual behavior (ICD-10 - Z72.53) Nov, Encounter for screening for lipoid disorders (ICD-10 - Z13.220) Nov, Routine gynecological examination (ICD-10 - Z01.419) Nov, STI (sexually transmitted infection) (ICD-10 - A64) Told she has chlamydia and treated with doxycycline with last dose of treatment today. Partner also treated with last dose tomorrow. Has been having unprotected intercourse on treatment. Relays she got results electronically but showed her chlamydia test was negative. Would like repeat testing for GCC today Reports having serum STI testing done through PP Recommend repeat STI testing in 3 months for GCC after treatment and serum STI testing every 6-12 months due to high risk behavior Nov, Menopausal and female climacteric states (ICD-10 - N95.1) Nov, Screen for STD (sexually transmitted disease) (ICD-10 - Z11.3) Nov, Thyroid disorder screen (ICD-10 - Z13.29) Nov, Irregular menses (ICD-10 - N92.6) PCOS labs today. Follow up via Televisit in 1-2 weeks to review. Discussed [place] criteria for PCOS diagnosis including anovulation, signs of hyperandrogenism, and/or polycytic ovaries with enlarged ovarian volume on pelvic US Nov, Diabetes mellitus screening (ICD-10 - Z13.1) Nov, BMI 40.0-44.9, adult (ICD-10 - Z68.41) Nov, Severe episode of recurrent major depressive disorder, without psychotic features (ICD-10 - F33.2) Declines behavioral health resources at this time Nov, Other Exercise: chaya nue with regular daily exercise. Congratulated on recent weight loss with diet/exercise changes High calcium diet encouraged Breast awareness discussed, annual mammogram screening recommended starting at age 40 Pap/HPV: up to date MARCELO signed to obtain results Contraception: none, comfortable with this and open to if this occurs HM labs: unsure, lipids and HgA1c today Follow up annually or PRN PLAN OF TREATMENT Treatment Notes Assessment Notes Clinical Notes Irregular menses Labs reviewed. No ob vious concerns for cause of irregular menses. Having more regular cycles every 1-2 months since losing 70 lbs. Could complete pelvic US to evaluate ovaries for PCOS if desired. Discussed metabolic syndrome likely attributing factor. Has done hormonal contraceptive in the past to regulate menses and prefers to avoid this treatment at this time Plan to monitor menses and length of cycles if she goes longer than 3 months without a period can consider progesterone challange as long as she is not to help induce bleeding. Otherwise she prefers to continue working on weight loss which has helped with cycle regulation this far. Vaginal discharge Advise in office vis it for vaginitis evaluation since today's visit was done via televisit Will have guest relations receptionist call her to schedule at her convenience STI (sexually transmitted infection) Told she has chlamydia and treated with doxycycline with last dose of treatment today. Partner also treated with last dose tomorrow. Has been having unprotected intercourse on treatment. Relays she got results electronically but showed her chlamydia test was negative. Would like repeat testing for GCC today Reports having serum STI testing done through PP Recommend repeat STI testing in 3 months for GCC after treatment and serum STI testing every 6-12 months due to high risk behavior Irregular menses PCOS labs today. Fol low up via Televisit in 1-2 weeks to review. Discussed [place]ter[place] criteria for PCOS diagnosis including anovulation, signs of hyperandrogenism, and/or polycytic ovaries with enlarged ovarian volume on pelvic US Severe episode of recurrent major depressive disorder, without psychotic features Declines behavioral health resources at this time Next Appt Details Provider Name:Sakshi anderson, 2022-09-11 04:00:00 PM, [address] [place], [address], Insurance Providers Payer Name Payer Address Payer Phone Insured Name Patient Relationship to Insured Coverage Start Date Coverage End Date Subscriber Number Group Number [employer] [place] [address] [facility] [address] [address] [place] Self - patient is the insured [id number]
[2022-09-08] MEDS: KETOROLAC 15 MG/ML inj IVP (09:52)
[2022-09-08] MEDS: MORPHINE 4 MG/ML INJ IVP (09:54)
[2022-09-08 09:58] LABS: Slide Review Reflex No
[2022-09-08 10:08] LABS: Albumin* 2.7 g/dL (3.3-5.0)
[2022-09-08 10:09] LABS: Chloride* 101 mmol/L (96-114); HCG Qualitative Serum* Negative (Negative); Potassium* 4.1 mmol/L (3.6-5.1); Sodium* 135 mmol/L (135-149)
[2022-09-08 10:11] LABS: Aspartate Amino Transferase* 25 U/L (12-35); Bilirubin Total* 1.1 mg/dL (0.1-1.5); Blood Urea Nitrogen* 9 mg/dL (5-24); Carbon Dioxide* 23 mmol/L (20-32); Creatinine* 0.5 mg/dL (0.5-1.5); Est. Creatinine Clearance* 159.62; Estimated Glomerular Filt Rate 133 ml/min; Total Protein* 8.4 g/dL (6.0-8.3)
[2022-09-08 10:12] LABS: Alanine Aminotransferase* 21 U/L (4-35); Alkaline Phosphatase* 75 U/L (40-150); Calcium* 9.5 mg/dL (8.4-10.6); Glucose* 111 mg/dL (60-115); Lipase* 51 U/L (23-300)
[2022-09-08 10:29] LABS: SARS PCR* Negative SARS-CoV-2 (Negative)
--- NOTE | 2022-09-08 10:34 | ED.NURSE ---
pt resting in bed, no longer crying. rating RUQ pain 6/10
[2022-09-08] MEDS: 0.9 % SODIUM CHLORIDE 1000 ml 1,000 ML 125 ML IV (11:33)
[2022-09-08] MEDS: HYDROmorphone 0.5 mg/0.5 ml inj IVP ×2 (11:34→13:52)
--- NOTE | 2022-09-08 13:53 | ED.NURSE ---
pt moaning in pain, rates pain 8/10. mother at bedside. pt talking on the phone. dilaudid iv given.
--- NOTE | 2022-09-08 15:06 | PM.GSHP ---
History of Present Illness History of Present Illness Date Seen: 09/08/22 Chief complaint: Gallbladder issues- Was here last night Narrative: Zeina Roy is a 26 year old female who presented to the emergency department today with severe right upper quadrant pain. She states that since last Sunday or 1 week ago, she had right upper quadrant pain. Over the weekend it was somewhat better but then it came back over the course of the week. Yesterday became severe and she went to urgent care. They told her she should go to the emergency department. There she had labs an ultrasound of her gallbladder. It showed gallstones. She was discharged home. However overnight she became significantly worse and came back to the emergency department. She had nausea and vomiting this morning. She has had a small amount of diarrhea. Walking makes her pain worse. Laying down generally would make it better however this is no longer helping at this point. She has never had anything like this before. The discomfort does cause a small amount of chest pain and shortness of breath. She states that she recently has had an upper respiratory illness with a cough and has had some mucus in her chest. Denies urinary symptoms. PFSH PFSH Medical History Vitiligo ?L80 - Vitiligo (ICD-10) History of morbid obesity ?Z86.39 - Personal history of other endocrine, nutritional and metabolic disease (ICD-10) Surgical History History of wisdom tooth extraction ?K08.409 - Partial loss of teeth, unspecified cause, unspecified class (ICD-10) Family History Father Diabetes Social History Narrative: Single- in a significant relationship Exercises 4-5 days per week Consumes about 5 alcoholic beverages per week. Denies any recreational drug use. Nonsmoker. Has a high school diploma. Smoking Status: Never smoker Do you use any of these nicotine containing products: None Second hand tobacco smoke exposure: No How often do you have a drink containing alcohol: 2-4 times a month How many standard drinks containing alcohol do you have on a typical day: 3 or 4 AUDIT-C Alcohol total score: 3 Non-prescribed substance use: denies use service: No Meds Home Medications and Allergies Allergies Allergy/AdvReac Type Severity Reaction Status Date / Time No Known Drug Allergies Allergy Verified 06/08/22 14:57 Exam Const: Vital Signs, click to edit/add: Vital Signs - 24 hr 09/08/22 09:13 09/08/22 09:55 09/08/22 10:00 Temperature 98.2 F Pulse Rate 66 63 Pulse Rate [Pulse Oximeter] 66 Respiratory Rate 18 Blood Pressure Blood Pressure [Le ft Upper Arm] 129/85 Pulse Oximetry 97 97 96 Oxygen Delivery Me thod Room Air 09/08/22 10:01 09/08/22 10:17 09/08/22 10:30 Temperature Pulse Rate 65 65 77 Pulse Rate [Pulse Oximeter] Respiratory Rate Blood Pressure 118/76 123/85 Blood Pressure [Le ft Upper Arm] Pulse Oximetry 96 97 97 Oxygen Delivery Me thod 09/08/22 10:32 09/08/22 10:33 09/08/22 10:46 Temperature Pulse Rate 66 63 59 L Pulse Rate [Pulse Oximeter] Respiratory Rate Blood Pressure 110/71 117/78 Blood Pressure [Le ft Upper Arm] Pulse Oximetry 97 96 96 Oxygen Delivery Me thod 09/08/22 11:00 09/08/22 11:01 09/08/22 11:02 Temperature Pulse Rate 66 57 L 59 L Pulse Rate [Pulse Oximeter] Respiratory Rate Blood Pressure 117/76 Blood Pressure [Le ft Upper Arm] Pulse Oximetry 96 96 96 Oxygen Delivery Me thod 09/08/22 11:16 09/08/22 11:17 09/08/22 11:30 Temperature Pulse Rate 57 L 61 70 Pulse Rate [Pulse Oximeter] Respiratory Rate Blood Pressure 122/80 Blood Pressure [Le ft Upper Arm] Pulse Oximetry 98 97 98 Oxygen Delivery Me thod 09/08/22 11:31 09/08/22 11:46 09/08/22 12:00 Temperature Pulse Rate 60 60 63 Pulse Rate [Pulse Oximeter] Respiratory Rate Blood Pressure 127/85 121/77 Blood Pressure [Le ft Upper Arm] Pulse Oximetry 98 97 97 Oxygen Delivery Me thod 09/08/22 12:01 09/08/22 12:16 09/08/22 12:30 Temperature Pulse Rate 62 64 68 Pulse Rate [Pulse Oximeter] Respiratory Rate Blood Pressure 121/80 122/74 Blood Pressure [Le ft Upper Arm] Pulse Oximetry 97 96 97 Oxygen Delivery Me thod 09/08/22 12:31 09/08/22 12:46 09/08/22 13:00 Temperature Pulse Rate 65 63 63 Pulse Rate [Pulse Oximeter] Respiratory Rate Blood Pressure 122/82 123/88 Blood Pressure [Le ft Upper Arm] Pulse Oximetry 97 98 97 Oxygen Delivery Me thod 09/08/22 13:01 09/08/22 13:16 09/08/22 13:17 Temperature Pulse Rate 65 66 67 Pulse Rate [Pulse Oximeter] Respiratory Rate Blood Pressure 124/77 129/85 Blood Pressure [Le ft Upper Arm] Pulse Oximetry 97 97 97 Oxygen Delivery Me thod 09/08/22 13:30 09/08/22 13:31 09/08/22 13:48 Temperature Pulse Rate 78 68 64 Pulse Rate [Pulse Oximeter] Respiratory Rate Blood Pressure 126/89 156/134 H Blood Pressure [Le ft Upper Arm] Pulse Oximetry 97 97 97 Oxygen Delivery Me thod 09/08/22 14:01 09/08/22 14:02 09/08/22 14:16 Temperature Pulse Rate 68 65 68 Pulse Rate [Pulse Oximeter] Respiratory Rate Blood Pressure 123/87 129/81 Blood Pressure [Le ft Upper Arm] Pulse Oximetry 97 97 95 Oxygen Delivery Me thod 09/08/22 14:30 09/08/22 14:31 Temperature Pulse Rate 63 67 Pulse Rate [Pulse Oximeter] Respiratory Rate Blood Pressure 127/81 Blood Pressure [Le ft Upper Arm] Pulse Oximetry 97 96 Oxygen Delivery Me thod Results Results Labs: White blood cell count normal. LFTs within normal limits. Lipase normal. Abdominal x-ray: report reviewed and image reviewed Additional studies: FINDINGS: Liver: Normal in size and echotexture.? No suspicious masses.? No intrahepatic biliary dilatation.? Gallbladder: Contains several calcified stones and biliary sludge. Normal wall thickness.? No pericholecystic fluid. Negative sonographic Lewis sign per oracle fusion middleware developer. Common bile duct: 3 mm.? Pancreas: Unremarkable. Right kidney: Normal in size.? Normal echotexture and cortex.? No suspicious masses, stones, or hydronephrosis. Vasculature: Proximal abdominal aorta and IVC are unremarkable.? IMPRESSION: Cholelithiasis and biliary sludge without evidence for cholecystitis. Otherwise, unremarkable right upper quadrant ultrasound. Dictated by Carson Hatch MD @ 09/08/2022 12:27:02 AM Assessment and Plan Assessment and plan (1) Cholecystitis: Status: Acute (2) Cholelithiasis: Status: Acute Plan The patient is a 26-year-old female with likely cholecystitis. I explained that the treatment for this is laparoscopic cholecystectomy. We discussed the procedure as well as risks and benefits of surgery which include bleeding, infection, bile leak, conversion to open or injury to other structures, specifically the common bile duct. We also discussed recovery. Her common bile duct was not completely examined on the ultrasound, however she does not have any evidence of choledocholithiasis from a laboratory standpoint. Therefore we will not plan on ERCP unless there are other indicators at the time of surgery. She has agreed to proceed with surgery we will plan on proceeding today.
--- NOTE | 2022-09-08 15:40 | ED.NURSE ---
pt to OR
[2022-09-08] MEDS: LACTATED RINGERS 1000 ML 1,000 ML 100 ML IV (16:06)
[2022-09-08] MEDS: BUPIVACAINE 0.25% 30 ML INJECTION (18:00)
--- NOTE | 2022-09-08 18:18 | W.ANESCHARGE ---
Anesthesia Charges Start Date/Time Anesthesia Start Date: 09/08/22 Anesthesia Start Time: 15:49 Stop Date/Time Anesthesia Stop Date: 09/08/22 Anesthesia Stop Time: 18:15 Summary Emergency: [facility] [facility]
--- NOTE | 2022-09-08 18:28 | PM.GSPRC ---
Operative Note Date of procedure: 09/08/22 Pre-op diagnosis: Acute cholecystitis Post-op diagnosis: Same Type of Procedure: Laparoscopic cholecystectomy Indications: The patient is a 26-year-old female who presents to the emergency department with abdominal pain for the last week. She was discharged home yesterday because ultrasound showed cholelithiasis without cholecystitis, however her pain has been severe and persistent. I felt that she likely has cholecystitis or early cholecystitis not represented by imaging and therefore I recommended cholecystectomy. Procedure Description: After discussing the risks and benefits of the procedure, the patient signed informed consent.? The operative site was marked and the patient was brought to the operating room and placed on the operating table in supine position.? Care was taken to pad the patient's pressure points.?? The patient was then intubated by anesthesia.?? The operative site was then prepped and draped in the usual sterile fashion.? A time-out was then performed. Entrance to the abdomen was gained via a 5 mm Visiport in the left upper quadrant. The abdomen was insufflated and briefly surveyed for signs of injury. There was none. A 10 mm port was placed above the umbilicus as well as 2 working ports along the right costal margin, all under direct vision. The patient was then placed in reverse Trendelenburg position with the right side up. The gallbladder was markedly distended and edematous. There was a small amount of ascites around the gallbladder. A needle was advanced into the abdomen decompressed the gallbladder. Green bile returned. Once this was done, the fundus was grasped and retracted cephalad. The infundibulum was grasped. A combination of hook cautery and blunt dissection was used to carefully dissect out the cystic duct and artery until they could clearly be seen entering the gallbladder without any intervening structures. Of note, the gallbladder was extremely edematous and inflamed. The tissue bled very easily, however, this was able to be true controlled with cautery and clips on small vessels along the peritoneum. The gallbladder was dissected off the cystic plate to achieve the critical view. Once this was achieved the cystic artery was clipped with 2 clips proximally and 1 clip distally and transected with the scissors. The cystic duct was a bit too large to facilitate a 5 mm clip and therefore I elected to close the cystic duct with an endoloop. I grasped the gallbladder neck with a grasper and transected the gallbladder just below the neck with the scissors to prevent bile spillage. There were 2 small stones in the cystic duct. These were milked out and removed from the abdomen. No other stones were noted. Both a Vicryl and a PDS endoloop were placed over the cystic duct stump. The gallbladder was then taken off of the liver bed and removed from the abdomen using an Endo-Catch bag - to facilitate this the supraumbilical incision had to be widened as the gallbladder was very large and very edematous. Two small vessels on the cystic plate in the liver bed were clipped. The gallbladder bed was surveyed for hemostasis which appeared excellent, however I did place a piece of Surgicel in the gallbladder bed given the amount of inflammation and oozing. A small amount of bile which had spilled was suctioned from the abdomen. The ports were then removed and the abdomen desufflated. The umbilical port fascia was closed with a running 0 Vicryl suture. The umbilical port site was closed with 3 0 Vicryl dermal and 4 0 Monocryl running subcuticular suture. The remaining ports were closed with 4-0 Monocryl subcuticular suture. Instrument sponge and needle counts were correct at the end of the case. The patient was then woken and transferred to the PACU in stable condition. ? The patient tolerated the procedure well. Findings: Extremely edematous gallbladder with stones impacted in the proximal cystic duct. Anesthesia: GETA Surgeon: Marita Mensah MD Estimated blood loss (mL): 50 Specimen: Gallbladder Condition: stable Disposition: PACU
--- NOTE | 2022-09-08 18:29 | SUR.PHASEI ---
Patient met parameters for PACU discharge
--- NOTE | 2022-09-08 19:40 | PC.NURSE ---
End of shift-- Pt arrived from PACU at approximately 1835. VSS and pt is afebrile. SPO2 maintained >94% on RA. She denied any pain, but did c/o mild nausea. Too soon for Zofran administration, but pt was given aromatherapy, lou filiberto, a cool washcloth and a nap. Mother was at bedside and appears loving and supportive. Report to DALIA Arambula.
[2022-09-09] VITALS: BP 110/95; PULSE 76; RESP 16; TEMP 36.7; O2SAT 97
[2022-09-09] MEDS: HYDROCODONE-ACETAMIN 5-325 MG 1 TAB PO ×3 (00:37→09:01)
[2022-09-09] MEDS: LACTATED RINGERS 1000 ML 1,000 ML 100 ML IV (00:45)
[2022-09-09 04:15] VITALS: BP 95/64; PULSE 70; RESP 14; TEMP 36.7; O2SAT 96
--- NOTE | 2022-09-09 06:56 | PC.NURSE ---
Pt alert and oriented x3, afebrile. Pt reports 9/10 in abdomen, pain managed with PRN medications. pt denies, SOB, chest pain, and N/V. Pt has 4 lap sites that are open to air and have a small amount of dried blood on them. Pt is voiding, up x2 to the bathroom. Pt is tolerating a clear liquid diet. Pt is up IND. Pt slept intermittently throughout?night. ?
[2022-09-09 07:00] VITALS: PULSE 78; RESP 16
[2022-09-09 08:00] VITALS: BP 103/57; PULSE 78; RESP 16; TEMP 36.9; O2SAT 97
--- NOTE | 2022-09-09 09:41 | PM.DS1 ---
DS: Providers Provider Date Seen: 09/09/22 Date of admission: 09/08/22 Primary care physician: Chely Lane PA-C Admitting Clinician: Marita Mensah MD Attending Physician on discharge: Marita Mensah MD Date of Discharge: 09/09/22 DS: Diagnosis Discharge Diagnosis (1) Cholecystitis: Status: Acute Problem details: resolved (2) Biliary colic: Status: Acute Problem details: resolved (3) S/P laparoscopic cholecystectomy: Status: Acute DS: Summary Hospital Course Hospital Course: The patient was admitted after laparoscopic cholecystectomy for acute cholecystitis. She did well overnight. On the day of discharge she was tolerating a diet. She had good pain control with oral medications. She was deemed safe for discharge home. Time Spent with Patient Time attestation: Total time spent providing and/or coordinating discharge services: Exam Narrative: Exam Narrative: General: No acute distress CV: Regular rate and rhythm Respiratory: Breathing nonlabored on room air Abdomen: Obese. Incisions are without erythema. Left upper quadrant incision with some blood staining. Const: Vital Signs, click to edit/add: Vital Signs - 24 hr 09/08/22 09:55 09/08/22 10:00 09/08/22 10:01 Temperature Pulse Rate 66 63 65 Pulse Rate [Right Radial] Respiratory Rate Blood Pressure 118/76 Blood Pressure [Le ft Arm] Pulse Oximetry 97 96 96 Oxygen Delivery Me od 09/08/22 10:17 09/08/22 10:30 09/08/22 10:32 Temperature Pulse Rate 65 77 66 Pulse Rate [Right Radial] Respiratory Rate Blood Pressure 123/85 110/71 Blood Pressure [Le ft Arm] Pulse Oximetry 97 97 97 [facility] 09/08/22 10:33 09/08/22 10:46 09/08/22 11:00 Temperature Pulse Rate 63 59 L 66 Pulse Rate [Right Radial] Respiratory Rate Blood Pressure 117/78 Blood Pressure [Le ft Arm] Pulse Oximetry 96 96 96 Oxygen Delivery Me thod 09/08/22 11:01 09/08/22 11:02 09/08/22 11:16 Temperature Pulse Rate 57 L 59 L 57 L Pulse Rate [Right Radial] Respiratory Rate Blood Pressure 117/76 122/80 Blood Pressure [Le ft Arm] Pulse Oximetry 96 96 98 [facility] 09/08/22 11:17 09/08/22 11:30 09/08/22 11:31 Temperature Pulse Rate 61 70 60 Pulse Rate [Right Radial] Respiratory Rate Blood Pressure 127/85 Blood Pressure [Le ft Arm] Pulse Oximetry 97 98 98 Oxygen Delivery Me thod 09/08/22 11:46 09/08/22 12:00 09/08/22 12:01 Temperature Pulse Rate 60 63 62 Pulse Rate [Right Radial] Respiratory Rate Blood Pressure 121/77 121/80 Blood Pressure [Le ft Arm] Pulse Oximetry 97 97 97 Oxygen Delivery Me thod 09/08/22 12:16 09/08/22 12:30 09/08/22 12:31 Temperature Pulse Rate 64 68 65 Pulse Rate [Right Radial] Respiratory Rate Blood Pressure 122/74 122/82 Blood Pressure [Le ft Arm] Pulse Oximetry 96 97 97 Oxygen Delivery Me thod 09/08/22 12:46 09/08/22 13:00 09/08/22 13:01 Temperature Pulse Rate 63 63 65 Pulse Rate [Right Radial] Respiratory Rate Blood Pressure 123/88 124/77 Blood Pressure [Le ft Arm] Pulse Oximetry 98 97 97 Oxygen Delivery Me thod 09/08/22 13:16 09/08/22 13:17 09/08/22 13:30 Temperature Pulse Rate 66 67 78 Pulse Rate [Right Radial] Respiratory Rate Blood Pressure 129/85 Blood Pressure [Le ft Arm] Pulse Oximetry 97 97 97 Oxygen Delivery Me thod 09/08/22 13:31 09/08/22 13:48 09/08/22 14:01 Temperature Pulse Rate 68 64 68 Pulse Rate [Right Radial] Respiratory Rate Blood Pressure 126/89 156/134 H 123/87 Blood Pressure [Le ft Arm] Pulse Oximetry 97 97 97 Oxygen Delivery Me thod 09/08/22 14:02 09/08/22 14:16 09/08/22 14:30 Temperature Pulse Rate 65 68 63 Pulse Rate [Right Radial] Respiratory Rate Blood Pressure 129/81 Blood Pressure [Le ft Arm] Pulse Oximetry 97 95 97 Oxygen Delivery Me thod 09/08/22 14:31 09/08/22 18:15 09/08/22 18:20 Temperature 98.6 F Pulse Rate 67 95 93 Pulse Rate [Right Radial] Respiratory Rate 12 12 Blood Pressure 127/81 121/76 121/78 Blood Pressure [Le ft Arm] Pulse Oximetry 96 95 96 Oxygen Delivery Me thod Room Air Room Air 09/08/22 18:25 09/08/22 18:35 09/08/22 18:45 Temperature 98.0 F 98.3 F 98.3 F Pulse Rate 90 79 Pulse Rate [Right Radial] 79 Respiratory Rate 14 18 18 Blood Pressure 127/78 Blood Pressure [Le ft Arm] 109/82 109/82 Pulse Oximetry 95 96 Oxygen Delivery Me thod Room Air Room Air Room Air 09/08/22 19:00 09/08/22 19:15 09/08/22 19:30 Temperature 98.0 F 97.8 F Pulse Rate Pulse Rate [Right Radial] 79 79 70 Respiratory Rate 18 18 16 Blood Pressure Blood Pressure [Le ft Arm] 117/76 114/72 116/71 Pulse Oximetry 96 95 96 Oxygen Delivery Me thod Room Air Room Air 09/08/22 19:45 09/08/22 20:00 09/08/22 20:30 Temperature 97.9 F 97.6 F Pulse Rate Pulse Rate [Right Radial] 73 73 86 Respiratory Rate 16 18 16 Blood Pressure Blood Pressure [Le ft Arm] 103/78 112/67 114/64 Pulse Oximetry 95 97 98 Oxygen Delivery Me thod Room Air Room Air Room Air 09/08/22 21:00 09/08/22 22:00 09/08/22 23:00 Temperature 98.1 F 98.2 F 98.1 F Pulse Rate Pulse Rate [Right Radial] 85 77 85 Respiratory Rate 18 16 16 Blood Pressure Blood Pressure [Le ft Arm] 110/68 107/69 105/68 Pulse Oximetry 95 96 95 Oxygen Delivery Me thod Room Air Room Air Room Air 09/08/22 23:00 09/09/22 00:00 09/09/22 04:15 Temperature 98.1 F 98.0 F 98.1 F Pulse Rate Pulse Rate [Right Radial] 85 76 70 Respiratory Rate 16 16 14 Blood Pressure Blood Pressure [Le ft Arm] 105/68 110/95 H 95/64 Pulse Oximetry 95 97 96 Oxygen Delivery Me thod Room Air Room Air Room Air 09/09/22 08:00 Temperature 98.5 F Pulse Rate Pulse Rate [Right Radial] 78 Respiratory Rate 16 Blood Pressure Blood Pressure [Le ft Arm] 103/57 L Pulse Oximetry 97 Oxygen Delivery Me thod Room Air DS: Data Data Completed and Pending Labs on day of discharge: Labs from last 24 hours 09/08/22 09/08/22 09:45 09:34 WBC 10.79 RBC 5.22 H Hgb 14.9 Hct 43.5 MCV 83 MCH 29 MCHC 34 RDW Coeff of Yenny 13.0 Plt Count 297 Neut % (Auto) 86.9 H Lymph % (Auto) 9.5 L Taney % (Auto) 3.3 Eos % (Auto) 0.0 Baso % (Auto) 0.1 Neut # (Auto) 9.40 H Lymph # (Auto) 1.00 Taney # (Auto) 0.40 Eos # (Auto) 0.00 Baso # (Auto) 0.01 Sodium 135 Potassium 4.1 Chloride 101 Carbon Dioxide 23 BUN 9 Creatinine 0.5 Estimated Creat Clear 159.62 Estimated GFR 133 Glucose 111 Lactate 1.3 Calcium 9.5 Total Bilirubin 1.1 Direct Bilirubin 0.0 AST 25 ALT 21 Alkaline Phosphatase 75 Total Protein 8.4 H Albumin 2.7 L Lipase 51 HCG, Qual Negative SARS-CoV-2 (PCR) Negative SARS-CoV-2 Discharge Plan Discharge Disposition: Home, Self-Care Discharging Surgeon: Marita Mensah Follow-Up Appointment: 2 weeks Prescriptions: New hydrocodone-acetaminophen 5-325 mg Tablet 1 tab PO Q6H PRN (Reason: Pain) Qty: 20 0RF Continued spironolactone 50 mg tablet 50 mg PO BID Qty: 60 2RF clindamycin phosphate 1 % lotion 1 applic topical BID Qty: 60 0RF Opzelura 1.5 % cream 1 applic topical BID Qty: 60 3RF Activity Level: No strenuous activity Activity Detail: No lifting more than 20 lb for 3 weeks Discharge Diet: Regular Patient Instructions: General Anesthesia (DC), Laparoscopic Cholecystectomy (DC) Additional Instructions: Wound care: Your sutures are under the skin and will dissolve over time. Leave steri strips (white bandages) over incisions until they fall off (or remove after 7 days). OK to shower tomorrow but avoid bathing, soaking or swimming for 2 weeks. Pat the incisions dry. No need to wash or scrub the area. Apply ice to the area as needed for swelling. It is also OK to use a heating pad if this provides more comfort to you. Pain control: You were prescribed a pain medication. This medication contains acetaminophen (Tylenol). If you are taking your prescribed pain pills 4 times daily, do not take additional acetaminophen. As your pain improves, you can try taking acetaminophen instead of the prescribed pain pill. It is ok to take Ibuprofen or Naproxen (per directions on packaging). This medication helps with inflammation and swelling. Take an [id number] stool softener while you are taking prescribed pain medications to help alleviate constipation. I recommend Senna and/or Colace. Take as directed on package. If you have not had a bowel movement in 3 days, try taking Miralax as directed on the package. All of these are available over the counter. Follow-up Follow up with Dr. Mensah in 2-3 weeks Please call if you are experiencing severe pain, nausea, vomiting, difficulty urinating, fever or have not had bowel movement in 4 days after surgery. Forms: Work/School Release Follow-up: Chely Lane PA-C [Primary Care Provider] - Marita Mensah MD [Staff Physician] - Discharge Orders: Discharge Order (Routine); Ordered 09/09/22 Ordered By: Marita Mensah
[2022-09-09] MEDS: DOCUSATE SODIUM 100 MG CAPSULE PO (10:10)
--- NOTE | 2022-09-09 11:57 | PC.NURSE ---
Discharge-- Pleasant and cooperative, alert and oriented patient was discharged to home via wheelchair with her sister.? VSS and pt is afebrile.? SPO2 maintained >94% on RA.? She c/o pain in her right lower abdomen today which she rated as high as 7 out of 10 but appears well managed with [place] Q4H.? 4x lap sites are AMANDA with steri strips intact with small amount of old bloody drainage noted.? Discharge education was provided including diagnosis info, symptoms to report, medications and follow up plan.? All questions answered and SL was removed with tip intact.
== END 2022-09-09 11:30 | disposition home or self-care (01) ==
LOC: ED 15:32 → SS 15:34 → MEDSURG 18:28
PROVIDERS: Emergency Provider Family Medicine; PCP Physician Assistant Medical; Visit Provider Surgery
PROC: 0FT44ZZ Resection of Gallbladder, Percutaneous Endoscopic Approach (ICD-10-PCS; CPT 47562; principal; 2022-09-08 15:45)
DX: K80.00 Calculus of gallbladder with acute cholecystitis without obstruction (principal); E66.9 Obesity, unspecified; Z68.39 Body mass index [BMI] 39.0-39.9, adult
CPT/HCPCS: 47562; 00790; 36415; 80048; 80076; 83605; 83690; 84703; 85025; 87635; 88304; 99140; 99284; 99285; A9270; J0330; J1100; J1170; J1885; J2270; J2405; J2704; J3010; J3490; J7030; J7120

== ENCOUNTER 2022-10-04 13:37 | Outpatient (CLI) | payer MEDICAID, SELFPAY | END 2022-10-04 13:38 | disposition home or self-care (01) | PROVIDERS: PCP Physician Assistant Medical; Visit Provider Physician Assistant Medical | DX: R11.0 Nausea (principal); R35.0 Frequency of micturition | CPT/HCPCS: 80053; 82607 ==

== ENCOUNTER 2023-01-01 18:26 | Outpatient (CLI) | payer MEDICAID, SELFPAY ==
--- OUTSIDE RECORDS SUMMARY | 2023-01-04 15:07 | XMS_ITS | Patient Health Record ---
Author Name Unknown Organization [facility] Address [address] [place], [place] [id number] Care Team Providers Care Brake Repairer Hydraulic Name Role Phone None, No PCP Primary Care Provider Unavailstefan GreshamNelly jimenez Unavailable [phone] Sakshi Murphy Unavailable [phone] ALLERGIES No Known Allergies RESULTS Component Value Reference Range Notes HIV 1/2 ANTIGEN/ANTIBODY,FOU RTH GENERATION W/RFL Reviewed date:11/29/2022 10:43:30 AM Interpretation: Performing Lab:S[facility] [facility], [place] Bob Landry Notes/Report: HIV AG/AB, 4TH GEN NON-REACTIVE NON-REACTIVE HIV-1 antigen and HIV-1/HIV-2 antibodies were not detected. There is no laboratory evidence of HIV infection. PLEASE NOTE: This information has been disclosed to you from records whose confidentiality may be protected by state law. If your state requires such protection, then the state law prohibits you from making any further disclosure of the information without the specific written consent of the person to whom it pertains, or as otherwise permitted by law. A general authorization for the release of medical or other information is NOT sufficient for this purpose. For additional information please refer to http://education.Naiku.Spinal Ventures/faq/RXG646 (This link is being provided for informational/ educational purposes only.) The performance of this assay has not been clinically validated in patients less than 2 years old. RPR (DX) W/REFL TITER AND CO NFIRMATORY TESTING Reviewed date:11/28/2022 01:59:30 PM Interpretation: Performing Lab:S[facility], [place] Bob Landry Notes/Report: RPR (DX) W/REFL TITER AND CONFIRMATORY TESTING NON-REACTIVE NON-REACTIVE HEPATITIS B SURFACE ANTIGEN W/REFL CONFIRM Reviewed date:11/29/2022 10:43:16 AM Interpretation: Performing Lab:SUSAN [facility], [place] Bob Landry Notes/Report: HEPATITIS B SURFACE ANTIGEN NON-REACTIVE NON-REACTIVE For additional information, please refer to http://SimpleHoney.Tranz/faq/KOD820 (This link is being provided for informational/ educational purposes only.) HEPATITIS C AB W/REFL TO HCV RNA, QN, PCR Reviewed date:11/29/2022 10:43:34 AM Interpretation: Performing Lab:S[facility], [place] Bob Landry Notes/Report: HEPATITIS C ANTIBODY NON-REACTIVE NON-REACTIVE HCV antibody was non-reactive. There is no laboratory evidence of HCV infection. In most cases, no further action is required. However, if recent HCV exposure is suspected, a test for HCV RNA (test code 02826) is suggested. For additional information please refer to http://SimpleHoney.Tranz/faq/KGQ50n9 (This link is being provided for informational/ educational purposes only.) BV/VAGINITIS PANEL DNA PROBE Reviewed date:11/28/2022 01:59:18 PM Interpretation: Performing Lab:NEAL [facility]-[address], [place] Bob Landry Notes/Report: TRICHOMONAS: NOT DETECTED NOT DETECTED GARDNERELLA: NOT DETECTED NOT DETECTED JENNY: NOT DETECTED NOT DETECTED Chlamydia & Gonorrhea Reviewed date:11/29/2022 10:41:59 AM Interpretation: Performing Lab:NEAL [facility]-[address], [place] Bob Landry Notes/Report: CHLAMYDIA TRACHOMATIS RNA, TMA, UROGENITAL NOT DETECTED NOT DETECTED NEISSERIA GONORRHOEAE RNA, TMA, UROGENITAL NOT DETECTED NOT DETECTED COMMENT The analytical performance characteristics of this assay, when used to test SurePath(TM) specimens have been determined by [facility]. The modifications have not been cleared or approved by the FDA. This assay has been validated pursuant to the CLIA regulations and is used for clinical purposes. For additional information, please refer to https://education.Tictail/faq/QPY384 (This link is being provided for information/ educational purposes only.) REASON FOR REFERRAL No Information MEDICATIONS Medication SIG (Take, Route, Frequency, Duration) Notes Start Date End Date Status Omeprazole 20 MG 1 capsule 30 minutes before morning meal Orally Once a day prn Active Levsin 0.125 MG 1 tablet as needed Orally every 4 hrs prn cramping Active Ondansetron 4 MG 1 tablet on the tongue and allow to dissolve Orally Once a day prn Active Senna-Docusate Sodium 8.6-50 MG 1 tablet as needed Orally Twice a day prn Active Opzelura 1.5 % 1 application Externally Twice a day prn for vitiligo Active Spironolactone-HCTZ 25-25 MG 1 tablet Orally Once a day hidradinitis suppurativa Active Clindamycin Phosphate 1 % 1 application Externally Twice a day hidradenitis suppurativa Active oxyCODONE HCl 5 MG 1 tablet as needed Orally every 6 hrs prn Active SOCIAL HISTORY Tobacco Use: Social History Observation Description Date Details (start date - stop date) Current Smoker NA - NA Sex Assigned At : Social History Observation Description Sex Assigned At Unknown Tobacco Use/Smoking Question Answer Notes Are you a current smoker Are you a nonsmoker How many cigarettes a day do you smoke? 01-29 Alcohol Screen (Audit-C) Question Answer Notes Did you have a drink contain ing alcohol in the past year? Yes Did you have a drink contain ing alcohol in the past year? Yes How often did you have a dri nk containing alcohol in the past year? 2 to 3 times a week (3 points) How often did you have a dri nk containing alcohol in the past year? Monthly or less (1 point) How many drinks did you have on a typical day when you were drinking in the past year? 1 or 2 drinks (0 point) How many drinks did you have on a typical day when you were drinking in the past year? 1 or 2 drinks (0 point) Points 3 Points 1 Interpretation Positive Interpretation Negative Sexual History Question Answer Notes Had sex in the past 12 months (vaginal, oral, or anal)? Yes with Men only Use protection? No Have you ever had a Sexually transmitted disease ? Yes Chlamydia? Yes Last menstrual period 11/19/2021 PROBLEMS Problem Type ICD Code Onset Dates Problem Status W/U Status Risk SNOMED Code Notes Problem Menopausal and female climacteric states (N95.1) Active confirmed Menopause (119446079) Problem Irregular menses (N92.6) Active confirmed 87470216 Problem BMI 40.0-44.9, adult (Z68.41) Active confirmed 618185268 Problem Severe episode of recurrent major depressive disorder, without psychotic features (F33.2) Active confirmed 63840279 VITAL SIGNS Blood pressure diastolic 56 mm Hg 11/27/2022 Height 66 in 11/27/2022 Blood pressure systolic 80 mm Hg 11/27/2022 Weight 240 lbs 11/27/2022 BMI 38.73 kg/m2 11/27/2022 Encounters Encounter Location Date Provider Diagnosis [facility] [id number] [place] [phone] 09/11/2022 Sakshi Murphy [facility] [address] [place] [address] 11/27/2022 Nelly Eul Well woman exam with routine gynecological exam Z01.419 and Screening examination for sexually transmitted disease Z11.3 [facility] [address] [place] [address] 11/27/2022 Nelly Eul Cervical discharge N89.8 ; Encounter for screening examination for sexually transmitted disease Z11.3 ; Encounter for screening examination for chlamydial infection Z11.8 and Encounter for screening for HIV Z11.4 [facility] [id number] [place] [address] 11/27/2022 Nelly Eul ASSESSMENTS Encounter Date Diagnosis Assessment Notes Treatment Notes Treatment Clinical Notes 11/27/2022 Cervical discharge (ICD-10 - N89.8) 11/27/2022 Screening examination for sexually transmitted disease (ICD-10 - Z11.3) 11/27/2022 Well woman exam with routine gynecological exam (ICD-10 - Z01.419) STI Screening performed today, will call patient with any abnormal results Pap smear up to date: 04/27/2022 NILM. Due next 2025 BC Discussed at length, patient will call if she desires to initiate RTC in 1 year for annual visit 30 minutes spent on chart review, in face to face time with patient, documentation of above and coordination of care. 11/27/2022 Encounter for screening examination for sexually transmitted disease (ICD-10 - Z11.3) 11/27/2022 Encounter for screening examination for chlamydial infection (ICD-10 - Z11.8) 11/27/2022 Encounter for screening for HIV (ICD-10 - Z11.4) 11/27/2022 Other 20 minutes spen t on chart review, in face to face time with patient, documentation of above and coordination of care. PLAN OF TREATMENT No Information Insurance Providers Payer Name Payer Address Payer Phone Subscriber Number Group Number Insured Name Patient Relationship to Insured Coverage Start Date [facility]age End Date [facility] [address] [place] [id number] Zeina Roy Self - patient is the insured MEDICAL (GENERAL) HISTORY Medical History History ICD Code hidradenitis suppurativa Vitiligo Major depressive disorder, recurrent, mo derate - 12.6.2019 Polycystic ovarian syndrome Anxiety Depression/ Anxiety Surgical History Surgery Date(Month/Year) Gastrectomy, sleeve, laparoscopic 023
== END 2023-01-01 18:27 | disposition home or self-care (01) ==
LOC: NFLDREF 01-04 15:05
PROVIDERS: PCP Physician Assistant Medical; Referring Provider Physician Assistant Medical; Visit Provider Family Medicine
DX: R30.0 Dysuria (principal); N30.01 Acute cystitis with hematuria
CPT/HCPCS: 87086; 87186

== ENCOUNTER 2023-02-07 20:49 | Outpatient (CLI) | payer MEDICAID, SELFPAY ==
--- OUTSIDE RECORDS SUMMARY | 2023-02-07 20:52 | XMS_ITS | Patient Health Record ---
Author Name Unknown Organization [facility] Address [address] [place], [place] [id number] Care Team Providers Care Franchise Broker Name Role Phone None, No PCP Primary Care Provider Unavailstefan GreshamNelly jimenez Unavailable [phone] Sakshi Murphy Unavailable [phone] ALLERGIES No Known Allergies RESULTS Component Value Reference Range Notes HIV 1/2 ANTIGEN/ANTIBODY,FOU RTH GENERATION W/RFL Reviewed date:11/29/2022 10:43:30 AM Interpretation: Performing Lab:S[facility] [address] [facility], [place]ox[place] Bob Landry Notes/Report: HIV AG/AB, 4TH GEN [...] purpose. For additional information please refer to http://education.howsimple.Grupo Intercros/faq/XAL954 (This link is being provided for informational/ educational purposes only.) The performance of this assay has not been clinically validated in patients less than 2 years old. RPR (DX) W/REFL TITER AND CO NFIRMATORY TESTING Reviewed date:11/28/2022 01:59:30 PM Interpretation: Performing Lab:SUSAN [facility], [place] Bob Landry Notes/Report: RPR (DX) W/REFL TITER AND CONFIRMATORY TESTING NON-REACTIVE NON-REACTIVE HEPATITIS B SURFACE ANTIGEN W/REFL CONFIRM Reviewed date:11/29/2022 10:43:16 AM Interpretation: Performing Lab:SUSAN [facility], [place] Bob Landry Notes/Report: HEPATITIS B SURFACE ANTIGEN NON-REACTIVE NON-REACTIVE For additional information, please refer to http://Trilogy International Partners.Immigreat Now/faq/TOB949 (This link is being provided for informational/ educational purposes only.) HEPATITIS C AB W/REFL TO HCV RNA, QN, PCR Reviewed date:11/29/2022 10:43:34 AM Interpretation: Performing Lab:SUSAN [facility], [place]ptgQS[address] Bob Landry Notes/Report: HEPATITIS C ANTIBODY NON-REACTIVE NON-REACTIVE HCV antibody was non-reactive. There is no laboratory evidence of HCV infection. In most cases, no further action is required. However, if recent HCV exposure is suspected, a test for HCV RNA (test code 15283) is suggested. For additional information please refer to http://Trilogy International Partners.Immigreat Now/faq/JTB95t4 (This link is being provided for informational/ educational purposes only.) BV/VAGINITIS PANEL DNA PROBE Reviewed date:11/28/2022 01:59:18 PM Interpretation: Performing Lab:NEAL [facility]-[address], [place]dagcSL[address] Bob Landry Notes/Report: TRICHOMONAS: NOT DETECTED NOT DETECTED GARDNERELLA: NOT DETECTED NOT DETECTED JENNY: NOT DETECTED NOT DETECTED Chlamydia & Gonorrhea Reviewed date:11/29/2022 10:41:59 AM Interpretation: Performing Lab:NEAL [facility]-[address], [place] Bob Landry Notes/Report: CHLAMYDIA TRACHOMATIS RNA, TMA, UROGENITAL NOT DETECTED NOT DETECTED NEISSERIA GONORRHOEAE RNA, TMA, UROGENITAL NOT DETECTED NOT DETECTED COMMENT The analytical performance characteristics of this assay, when used to test SurePath(TM) specimens have been determined by [facility]. The modifications have not been cleared or approved by the FDA. This assay has been validated pursuant to the CLIA regulations and is used for clinical purposes. For additional information, please refer to https://education.Ship It Bag Check/faq/QAK749 (This link is being provided for information/ [...] female climacteric states (N95.1) Active confirmed Menopause (619210506) Problem Irregular menses (N92.6) Active confirmed 22024456 Problem BMI 40.0-44.9, adult (Z68.41) Active confirmed 366664695 Problem Severe episode of recurrent major depressive disorder, without psychotic features (F33.2) Active confirmed 63156240 VITAL SIGNS Blood pressure diastolic 56 mm Hg 11/27/2022 Height 66 in 11/27/2022 Blood pressure systolic 80 mm Hg 11/27/2022 Weight 240 lbs 11/27/2022 BMI 38.73 kg/m2 11/27/2022 Encounters Encounter Location Date Provider Diagnosis [facility] [address] [place] [address] 11/27/2022 Nelly Eul [facility] [address] [place] [address] 09/11/2022 Sakshi Murphy [facility] [address] [place] [address] 11/27/2022 Nelly Eul Cervical discharge N89.8 ; Encounter for screening examination for sexually transmitted disease Z11.3 ; Encounter for screening examination for chlamydial infection Z11.8 and Encounter for screening for HIV Z11.4 [facility] [address] [place] [address] 11/27/2022 Nelly Eul Well woman exam with routine gynecological exam Z01.419 and Screening examination for sexually transmitted disease Z11.3 ASSESSMENTS Encounter Date Diagnosis Assessment Notes Treatment Notes Treatment Clinical Notes 11/27/2022 Screening examination for sexually transmitted disease [...] of above and coordination of care. 11/27/2022 Cervical discharge (ICD-10 - N89.8) 11/27/2022 Encounter for screening examination for sexually [...] Insured Coverage Start Date [facility]age End Date [facility] [address] [place] [id number] Zeina Roy Self - patient is the insured MEDICAL (GENERAL) HISTORY Medical History History ICD Code hidradenitis suppurativa Vitiligo Major depressive disorder, recurrent, mo derate - 12.6.2019 Polycystic ovarian syndrome Anxiety Depression/ Anxiety Surgical History Surgery Date(Month/Year) Gastrectomy, sleeve, laparoscopic 023
--- NOTE | 2023-02-13 08:47 | P.SLS_ITS ---
Sleep Study Details Details Interpreting Provider: Chantelle Date of Sleep Study: 02/07/23 Sleep Study Details: STUDY TYPE:? Hospital polysomnogram ? BMI:? 39.5 ORDERING PROVIDER:? Domingo INDICATION:? Concerns about sleep apnea ? SLEEP SUMMARY:? 366 minutes total sleep time, arousal index 17.2 RESPIRATORY SUMMARY:? Mean oxygen awake 98 asleep 98 minimum 94 AHI 0, RDI 1 PERIODIC LIMB MOVEMENTS OF SLEEP:? None were noted CARDIAC:? Awake 68, asleep 63. No arrhythmias noted IMPRESSION:? Normal polysomnogram RECOMMENDATION: If sleep disorder is strongly suspected would recommend an in- lab overnight study followed by a MSLT (multiple sleep latency test).
== END 2023-02-07 20:50 | disposition home or self-care (01) ==
PROVIDERS: PCP Physician Assistant Medical; Visit Provider Physician Assistant Medical
DX: R06.83 Snoring (principal); R06.81 Apnea, not elsewhere classified; R53.83 Other fatigue
CPT/HCPCS: 95810